=== PATIENT | female | born 1970 | race Caucasian/White ===

== ENCOUNTER → 2021-04-07 12:10 | Outpatient (CLI) | payer OTHER, SELFPAY ==
[2021-04-07 13:50] LABS: INR 1.1 (0.9-1.3); Prothrombin Time 11.9 SECONDS (10.1-12.7)
[2021-04-07 13:52] LABS: PTT Partial Thromboplastin Tim 32 SECONDS (26.4-36.2)
[2021-04-07 14:04] LABS: Add Manual Diff / Slide Review NO; Basophils Absolute Auto 0 /uL (0-100); Basophils Percent Auto 1.1 % (0-2); Eosinophils Absolute Auto 100 /uL (0-450); Eosinophils Percent Auto 1.6 % (2-4); Hematocrit 37.3 % (36-46); Hemoglobin 13.8 g/dL (12.0-16.0); Lymphocytes Absolute Auto 1400 /uL (1100-4500); Lymphocytes Percent Auto 34.4 % (25-40); Mean Corpuscular HGB Conc 36.8 % (30-36); Mean Corpuscular Hemoglobin 34.8 PG (26-34); Mean Corpuscular Volume 94.5 fL (80-100); Monocytes Absolute Auto 300 /uL (0-900); Monocytes Percent Auto 7.1 % (3-14); Neutrophils Absolute Auto 2300 /uL (1500-7000); Neutrophils Percent Auto 55.8 % (50-75); Platelet Count 161 X10^3/uL (150-400); Red Blood Cell Count 3.95 X10^6/uL (4.0-5.2); Red Cell Distribution Width 12.7 % (11.6-14.8); White Blood Cell Count 4.2 X10^3/uL (4.5-11.0)
== END ==
PROVIDERS: Referring Provider Family Medicine; Visit Provider Family Medicine
DX: R58 Hemorrhage, not elsewhere classified (principal)
CPT/HCPCS: 36415; 85025; 85610; 85730

== ENCOUNTER → 2022-01-22 07:43 | Outpatient (CLI) | payer OTHER, SELFPAY ==
--- NOTE | 2022-01-22 | DI.MG.S_ITS ---
BILATERAL DIGITAL SCREENING MAMMOGRAM 3D/2D WITH CAD: 01/22/2022 CLINICAL: Routine screening. Family history of breast cancer. Comparison is made to exams dated: 06/14/2020 mammogram, 11/19/2017 mammogram, and 10/12/2016 mammogram - outside location. Both breasts are heterogeneously dense, which may obscure small masses (category c / 51-75% glandular tissue). Current study was also evaluated with a Computer Aided Detection (CAD) system. No significant masses, calcifications, or other findings are seen in either breast. There has been no significant interval change. IMPRESSION: NEGATIVE There is no mammographic evidence of malignancy. A 1 year screening mammogram is recommended. Based on Tyrer-Cuzick model (a risk assessment model), the patient's lifetime risk is 20.2% and her 10 year risk is 5.2%. If a patient has an elevated risk, a more comprehensive evaluation should be considered and/or a referral to a genetic counselor. The [employer], [employer], and NCCN Guidelines advise the consideration of Breast MRI as an adjunct to screening mammography in patients whose Lifetime risk to develop breast cancer is 20% or higher. This exam was interpreted at Station ID: [id number]. NOTE: For mammograms, a report in lay terms will be sent to the patient. Approximately 15% of breast malignancies will not be visualized mammographically. In the management of a palpable breast mass, a negative mammogram must not discourage biopsy of a clinically suspicious lesion. Electronically Signed By: Adrian yarbrough/rylee:01/22/2022 11:59:38 letter sent: Normal Exam ACR BI-RADS Category 1: Negative 3341F
== END ==
PROVIDERS: PCP Family Medicine; Referring Provider Family Medicine; Visit Provider Family Medicine
DX: Z12.31 Encounter for screening mammogram for malignant neoplasm of breast (principal); Z80.3 Family history of malignant neoplasm of breast
CPT/HCPCS: 77063; 77067

== ENCOUNTER → 2022-02-21 11:25 | Outpatient (CLI) | payer OTHER, SELFPAY ==
[2022-02-21 13:24] LABS: COVID19 -Nasal RAPID Negative (Negative)
== END ==
PROVIDERS: PCP Family Medicine; Visit Provider Surgery
DX: Z01.812 Encounter for preprocedural laboratory examination (principal); Z20.822 Contact with and (suspected) exposure to COVID-19
CPT/HCPCS: 87635; C9803

== ENCOUNTER 2022-02-22 08:26 | Day surgery (SDC) | payer OTHER, SELFPAY ==
[2022-02-22 09:04] VITALS: BP 132/90; PULSE 15; RESP 100; TEMP 36.4; BMI 25.4
[2022-02-22] MEDS: LACTATED RINGERS 1,000 ML 42 ML IV ×2 (09:16→10:15)
--- NOTE | 2022-02-22 10:00 | PM.HP.1 ---
History of Present Illness History of Present Illness Date Patient Seen: 02/22/22 Time Patient Seen: 10:00 Chief complaint: SCREENING COLONOSCOPY Narrative: Rae is a 51 year old woman here for a colonoscopy. She has never had one before. She has no known family history of polyps but her older sister recently had a colectomy for a pre-cancerous, unresectable polyp. Patient History Medical History (Updated 02/22/22 @ 10:01 by Jose Merchant MD) Asthma GERD (gastroesophageal reflux disease) HTN (hypertension) Surgical History (Updated 02/22/22 @ 08:58 by Bonita Kendall RN) History of cholecystectomy Family & Social History Social History: household members spouse Tobacco & Substance use: Smoking Status Former smoker alcohol intake current alcohol intake frequency 0-2 drinks per day Substance Use Type does not use Meds Home Medications and Allergies Home Medications Medication Instructions Recorded Confirmed Type estradiol 0.05 mg/24 hr semiweekly 0.5 mg transdermal 2XW 02/22/22 02/22/22 History transdermal patch (Stefani) hydrochlorothiazide 25 mg tablet 25 mg PO DAILY 02/22/22 02/22/22 History Allergies Allergy/AdvReac Type Severity Reaction Status Date / Time cephalexin AdvReac Intermediate Rash Verified 02/22/22 09:01 erythromycin base AdvReac Intermediate Rash Verified 02/22/22 09:01 fentanyl AdvReac Intermediate Nausea Verified 02/22/22 09:01 Exam Vital Signs (past 8 hours): - 02/22/22 09:04 Temperature 97.5 F L Pulse Rate 15 L Respiratory Rate 100 H Blood Pressure 132/90 Oxygen Delivery Method Room Air Oxygen Delivery Method Room Air Const General: healthy appearing Assessment & Plan Assessment and plan (1) Colon cancer screening: Status: Acute Plan Rae is a 51 year old woman here for colonoscopy for colon cancer screening. We reviewed risks and benefits of the procedure and she would like to proceed. Time Spent With Patient Critical Care time: I spent a total of [] minutes of critical care time on this patient's care today; this time is exclusive of procedural time.
--- NOTE | 2022-02-22 10:59 | PM.OP.COLON ---
Operative Date/Time/Diagnoses Date of procedure: 02/22/22 Time of procedure: 10:59 Pre-op diagnosis: Colon cancer screening Post-op diagnosis: same Procedure & Clinicians Study performed: Colonoscopy Same procedure as scheduled: Yes Surgeon: Jose Merchant Procedure Notes Procedure in detail: Surgeon: Jose Merchant MD Anesthesia: Kaylee Smith CRNA Procedure: The patient was brought to the endoscopy suite, placed in left lateral decubitus position. The patient was connected to monitoring devices. A time-out was performed. Sedation was administered. Once the patient was adequately sedated, a digital rectal exam was performed and was normal. The scope was then inserted and advanced to the cecum where the appendiceal orifice was identified and photographed. The scope was then slowly withdrawn over greater than 6 minutes. The mucosa was thoroughly inspected. No abnormalities were noted. The scope was retroflexed in the rectum. No abnormalities were noted. The scope was straightened and removed. The patient was awakened and brought to recovery. Scope withdrawal time: 11 minutes Sedation time: 19 minutes EBL: 0 Findings: Normal colon Post-procedure Recommendations: Colonoscopy in 10 years Disposition: PACU
[2022-02-22 11:03] VITALS: BP 102/69; PULSE 69; RESP 13; TEMP 36.3; O2SAT 98
[2022-02-22 11:09] VITALS: BP 111/74; PULSE 61; RESP 14; TEMP 36.3; O2SAT 99
[2022-02-22 11:12] VITALS: BP 114/78; PULSE 72; RESP 18; TEMP 36.3; O2SAT 99
[2022-02-22 11:17] VITALS: BP 121/81; PULSE 60; RESP 14; TEMP 36.2; O2SAT 100
== END 2022-02-22 12:41 | disposition home or self-care (01) ==
PROVIDERS: PCP Family Medicine; Referring Provider Surgery; Visit Provider Surgery
PROC: 0DJD8ZZ Inspection of Lower Intestinal Tract, Via Natural or Artificial Opening Endoscopic (ICD-10-PCS; CPT 45378; principal; 2022-02-22 09:45)
DX: Z12.11 Encounter for screening for malignant neoplasm of colon (principal); Z83.71 Family history of colonic polyps
CPT/HCPCS: 45378; J2704

== ENCOUNTER → 2023-01-29 07:53 | Outpatient (CLI) | payer OTHER, SELFPAY ==
--- NOTE | 2023-01-29 | DI.MG.S_ITS ---
BILATERAL DIGITAL SCREENING MAMMOGRAM 3D/2D WITH CAD: 01/29/2023 CLINICAL: Routine screening. Family history of breast cancer. Comparison is made to exams dated: 01/22/2022 mammogram - [facility], 06/14/2020 mammogram, and 11/19/2017 mammogram - outside location. There are scattered areas of fibroglandular density in both breasts (category b / 25%-50% glandular tissue). Current study was also evaluated with a Computer Aided Detection (CAD) system. No significant masses, calcifications, or other findings are seen in either breast. There has been no significant interval change. IMPRESSION: NEGATIVE There is no mammographic evidence of malignancy. A 1 year screening mammogram is recommended. Based on the Tyrer Cuzick model (a risk assessment model) the patient's lifetime risk is 13.6% and her 10 year risk is 3.6%. According to the ACR, ACS, and NCCN guidelines, an annual breast MRI exam along with mammogram is recommended if the patient's lifetime risk is 20% or greater. This exam was interpreted at Station ID: [id number]. NOTE: For mammograms, a report in lay terms will be sent to the patient. Approximately 15% of breast malignancies will not be visualized mammographically. In the management of a palpable breast mass, a negative mammogram must not discourage biopsy of a clinically suspicious lesion. Electronically Signed By: Klarissa paredes/rylee:01/29/2023 08:41:42 letter sent: Normal Exam ACR BI-RADS Category 1: Negative 3341F
== END ==
PROVIDERS: PCP Family Medicine; Referring Provider Family Medicine; Visit Provider Family Medicine
DX: Z12.31 Encounter for screening mammogram for malignant neoplasm of breast (principal); Z80.3 Family history of malignant neoplasm of breast
CPT/HCPCS: 77063; 77067

== ENCOUNTER → 2024-11-16 07:56 | Outpatient (CLI) | payer OTHER, SELFPAY ==
--- NOTE | 2024-11-16 07:58 | DI.MG.S_ITS ---
MM screening mammo BI: 11/16/2024. BI-RADS: 1 CLINICAL: 53-year old female for bilateral screening mammogram. Tyrer-Cuzick lifetime risk of 12.9%. No personal or first-degree family history of breast cancer. Current reported family history of breast cancer: paternal aunt. PRIOR EXAMS 01/29/2023, 01/22/2022. MAMMOGRAPHY TECHNIQUE: 2D and 3D (tomosynthesis) digital mammographic views obtained, with additional images as needed for full coverage. Current study was also evaluated with a Computer Aided Detection (CAD) system. DENSITY B. There are scattered areas of fibroglandular density. MAMMOGRAPHY FINDINGS Bilateral: No suspicious mass, asymmetry, microcalcification, or other abnormality seen. IMPRESSION: * No evidence of malignancy. RECOMMENDATIONS Bilateral * Annual screening mammography. OVERALL ASSESSMENT CATEGORY BI-RADS-1: Negative. The [employer] recommends annual screening mammography beginning at age 40 for women with average risk of breast cancer. ELECTRONICALLY SIGNED: Karen Adair M.D. on 11/16/2024 at 09:03:58 AM PT Interpreting Station ID: [id number]
== END ==
LOC: MAMMO 07:57
PROVIDERS: PCP Family Medicine; Referring Provider Family Medicine; Visit Provider Family Medicine
DX: Z12.31 Encounter for screening mammogram for malignant neoplasm of breast (principal)
CPT/HCPCS: 77063; 77067

== ENCOUNTER → 2025-02-04 10:59 | Outpatient (CLI) | payer OTHER, SELFPAY ==
--- NOTE | 2025-02-04 11:00 | DI.MRI.S_ITS ---
PROCEDURE: MR KNEE RT WO CON INDICATIONS: Pain in RT knee; Locking knee; acute medial menisc TECHNIQUE: Noncontrast sagittal PD fast spin echo and T2 fast spin echo with fat saturation, sagittal 3-D FLASH with fat saturation; coronal T1 spin echo and PD fast spin echo with fat saturation, and axial PD fast spin echo with fat saturation through the knee. COMPARISON: None. FINDINGS: Image quality: Excellent. Menisci: Medial meniscus is intact. Linear vertically oriented high T2 signal intensity traverses the inner 3rd of the lateral meniscal body, demonstrating superior and inferior articular surface extension, indicating vertical tearing. Cruciate ligaments: The anterior and posterior cruciate ligaments appear intact. Medial structures: The medial collateral ligament appears intact. Visualized portions of the pes anserinus tendons appear normal. There is moderate T2 signal elevation within the semimembranosus at the tibial insertion site. No abnormal bursal fluid. Lateral structures: The lateral collateral ligament, long and short heads of the biceps femoris tendon appear intact. The popliteus tendon appears normal. Iliotibial band appears normal. Anterior structures: The quadriceps and patellar tendons appear intact. Patellar alignment is normal. Lateral ventral trochlear prominence with shallow trochlear groove. Mild lateral patellar subluxation. Moderate edema in the superolateral aspect of the infrapatellar fat pad. Bones and cartilage: No bone marrow contusions or fractures. Mild subchondral degenerative marrow edema within the patellar apex and lateral facet. Tricompartmental periarticular osteophyte formation. There is a full-thickness articular cartilage defect overlying the posterior weight-bearing aspect of the lateral femoral condyle measuring 7 mm transverse by 11 mm anteroposterior. High-grade articular cartilage loss overlies the lateral patellar facet and patellar apex. Joint space: There is physiologic knee joint fluid. Small ganglion cyst along the popliteus. Small Upton's cyst. Normal appearing synovial plicae are incidentally noted. IMPRESSION: 1. Lateral meniscal tear. 2. Tricompartmental osteoarthritis with associated articular cartilage loss. 3. Findings consistent with lateral patellofemoral friction syndrome in the appropriate clinical setting. 4. Insertional tendinopathy of the semimembranosus. Dictated by: Zbigniew Desir M.D. on 02/04/2025 at 13:27 Approved by: Zbigniew Desir M.D. on 02/04/2025 at 13:29
== END ==
LOC: MRI 11:00
PROVIDERS: PCP Family Medicine; Referring Provider Physician Assistant; Visit Provider Physician Assistant
DX: S83.281A Other tear of lateral meniscus, current injury, right knee, initial encounter (principal); M17.11 Unilateral primary osteoarthritis, right knee; M71.21 Synovial cyst of popliteal space [Baker], right knee; M67.461 Ganglion, right knee; M23.91 Unspecified internal derangement of right knee; M25.561 Pain in right knee; X58.XXXA Exposure to other specified factors, initial encounter
CPT/HCPCS: 73721

== ENCOUNTER 2025-02-10 06:41 | Day surgery (SDC) | payer OTHER, SELFPAY ==
[2025-02-05 11:57] VITALS: BMI 29.0
--- NOTE | 2025-02-10 | PATH_ITS ---
[facility] Accession Number: [id number] No. of containers..02 Tissue . 01 Material submitted: . PART A: stomach - STOMACH, ANTRUM PART B: esophagus - ESOPHAGUS . 01 Diagnosis: Part A: STOMACH, ANTRUM: Gastric mucosa with minimal chronic inflammation. No Helicobacter organisms identified. No intestinal metaplasia, dysplasia, or malignancy identified. . Part B: ESOPHAGUS : Squamocolumnar junctional mucosa with mild chronic inflammation. No goblet cell metaplasia, dysplasia, or malignancy identified. [facility] 02/16/20251325 Local . 01 Electronically signed: . Marco Huitron MD, Pathologist NPI- [id number] . 01 Gross description: . A. Received in formalin with two identifiers and antral biopsy, are three العلي soft tissue fragments 0.2 to 0.5 cm in greatest dimension. Submitted entirely in cassette A1. . B. Received in formalin with two identifiers and esophageal biopsy, are four friable العلي soft tissue fragments 0.2 to 0.4 cm in greatest dimension. Submitted entirely in cassette B1. ([id number]) /[facility] 02/16/20251325 Local . 01 Microscopic: . Part A: ANTRAL: An immunohistochemical stain was performed to evaluate for Helicobacter organisms and is negative. The control stains appropriately. * This test was developed and the performance characteristics were validated by [facility]. It has not been cleared or approved by the Food and Drug Administration. . 01 Pathologist provided ICD-10: K20.90, K29.30 . 01 CPT . 808010, 132246, F55939 Specimen Comment: A courtesy copy of this report has been sent to [facility] Performed at: [address] [address], [place], [place] [id number] MD Marco Huitron MD Phone: [phone]
--- NOTE | 2025-02-10 07:01 | PM.HP.IH.1 ---
History of Present Illness History of Present Illness Date Patient Seen: 02/10/25 Chief complaint: EGD w/poss bx Narrative: Patient presents for EGD today. H/O GERD, esophageal erosions. [facility] Medical History (Updated 02/05/25 @ 11:59 by Mckenzie White RN) PONV (postoperative nausea and vomiting) GERD (gastroesophageal reflux disease) HTN (hypertension) Asthma Surgical History (Updated 02/05/25 @ 12:03 by Mckenzie White RN) History of esophagogastroduodenoscopy (EGD) (~2019) Hx of colonoscopy (02/22/22) History of cholecystectomy Social History household members: spouse alcohol intake: current Meds Home Medications and Allergies Home Medications ?Medication ?Instructions ?Recorded ?Confirmed ?Type hydrochlorothiazide 25 mg tablet 25 mg PO DAILY 02/22/22 01/04/25 History estradiol 0.075 mg/24 hr 1 patch topical 2XW 01/04/25 01/04/25 History semiweekly transdermal patch (Stefani) losartan 50 mg tablet 50 mg PO ONCE PM 01/04/25 01/04/25 History omeprazole 10 mg capsule,delayed 10 mg PO 01/04/25 01/04/25 History release Allergies Allergy/AdvReac Type Severity Reaction Status Date / Time cyclobenzaprine Allergy Intermediate Verified 01/04/25 10:26 cephalexin AdvReac Intermediate Rash Verified 02/22/22 09:01 erythromycin base AdvReac Intermediate Rash Verified 02/22/22 09:01 fentanyl AdvReac Intermediate Nausea Verified 02/22/22 09:01 Exam Narrative Exam Narrative: Const General: healthy appearing, comfortable and no acute distress Orientation: alert and oriented x3 HENMT Ears: hearing grossly normal bilaterally Eyes Visual Fuentes: normal visual fuentes by confrontation Conjunctivae: conjunctivae normal Sclera: sclerae normal EOM: EOM intact bilaterally Resp Effort & Inspection: normal respiratory effort and able to speak in complete sentences Cardio Rate: regular rate GI Palpation: soft (NT) Extrem General: no pedal edema and no calf tenderness Assessment & Plan Assessment and plan (1) GERD (gastroesophageal reflux disease): Qualifiers: Esophagitis presence: esophagitis presence not specified Qualified Code(s): K21.9 - Gastro-esophageal reflux disease without esophagitis Status: Acute Plan Plan EGD to evaluate for esophagitis, hiatal hernia, Kimball's, dysplasia, H pylori, PUD. The risks, benefits and options regarding the procedure were explained to the patient in detail. Risk discussion included but not limited to: bleeding, perforation, aspiration, sore throat. The patient was encouraged to ask questions and they were answered to their satisfaction. The patient understands and is agreeable to proceed. Time-Based Coding :: [TOTAL MINUTES] spent with patient and on the chart (including review of chart, obtaining history, exam, reviewing outside data, placing orders, documenting exam and treatment plan, and counseling patient) on [DATE]. PROFEE Utility Person Document charge(s): Yes Charge Codes Inpatient/observation care including admit and discharge same day: [id number]
[2025-02-10 07:13] VITALS: BP 102/71; PULSE 87; RESP 17; TEMP 36.8; O2SAT 97
[2025-02-10] MEDS: LACTATED RINGERS 1,000 ML 42 ML IV (07:24)
--- NOTE | 2025-02-10 07:43 | PM.OP.EGD ---
Operative Date/Time/Diagnoses Date of procedure: 02/10/25 Time of procedure: 07:57 Pre-op diagnosis: GERD Post-op diagnosis: same Procedure & Clinicians Study performed: EGD with biopsy Same procedure(s) as scheduled: Yes Indications: 54yo F, GERD, h/o eosphageal ulcers Surgeon: Jerome Hurley Anesthesia Type: MAC +/- Procedure Notes SCOAP/Timeout: Performed Procedure in detail: EGD Informed consent was obtained. The procedure, its risks, benefits, and alternatives were discussed. Patient understood and agreed to proceed. The patient was placed in the left lateral decubitus position with head elevated. Sedation given per anesthesia. The video endoscope was inserted into the oropharynx and guided under direct vision into the esophagus, stomach, and duodenum which were carefully examined. The scope was retroflexed to examine the hiatus and gastroesophageal junction. Antral biopsies were obtained for Helicobacter pylori. The patient tolerated the procedure very well. There were no apparent complications. Significant EGD findings: Z-line noted at: 36cm Patulous hiatus but no hiatal hernia No esophagitis, 4 quadrant biopsies in distal esophagus taken Mild antral gastritis, biopsied Duodenum normal No ulcer in esophagus, stomach or duodenum Findings: gastritis Specimen(s): other (biopsies) Estimated Blood Loss: 5 Complications: none Impression: Mild antral gastritis Patulous hiatus Post-procedure Recommendations: Will call with biopsy results Plan for aftercare: PACU then home Continue omeprazole Follow up: as needed Disposition: PACU
[2025-02-10 07:56] VITALS: BP 112/72; PULSE 81; RESP 17; TEMP 36.6; O2SAT 97
[2025-02-10 07:59] VITALS: BP 110/71; PULSE 86; RESP 18; O2SAT 96
[2025-02-10 08:03] VITALS: BP 108/69; PULSE 82; RESP 16; O2SAT 95
[2025-02-10 08:09] VITALS: BP 124/79; PULSE 75; RESP 16; O2SAT 97
== END 2025-02-10 08:33 | disposition home or self-care (01) ==
PROVIDERS: PCP Family Medicine; Referring Provider Surgery; Visit Provider Surgery
PROC: 0DJ08ZZ Inspection of Upper Intestinal Tract, Via Natural or Artificial Opening Endoscopic (ICD-10-PCS; CPT 43239; principal; 2025-02-10 07:45)
DX: K21.00 Gastro-esophageal reflux disease with esophagitis, without bleeding (principal); Z87.19 Personal history of other diseases of the digestive system; K29.50 Unspecified chronic gastritis without bleeding
CPT/HCPCS: 43239; J2704; J7120